=== PATIENT | female | born 1960 | race Caucasian/White ===

== ENCOUNTER 2021-12-04 09:38 | Day surgery (SDC) | payer MEDICAID ==
[~2021-12-04] VITALS: Ht 157.5 cm; Wt 96.3 kg
[2021-12-04] VITALS (13 sets, daily range): BP systolic 90–137; BP diastolic 39–69
[2021-12-04] MEDS ORDERED: nitroGLYCERIN 0.4mg SUBLingual tab SL PRN (10:00)
[2021-12-04] MEDS ORDERED: methylPREDNISolone sod succ 125mg/2ml vial IV ONE (10:00)
[2021-12-04] MEDS ORDERED: normal saline 1,000 ML IV SCH (10:00)
[2021-12-04] MEDS ORDERED: ATOR20TA66 PO (10:10)
[2021-12-04] MEDS ORDERED: METO25TA6 PO (10:10)
[2021-12-04] MEDS ORDERED: SPIR25TA5 PO (10:10)
[2021-12-04] MEDS ORDERED: LISI20TA28 PO (10:10)
[2021-12-04] MEDS ORDERED: MECO10005 PO (10:14)
[2021-12-04] MEDS ORDERED: CALC-331 PO (10:14)
[2021-12-04] MEDS ORDERED: CHOL200074 PO (10:14)
[2021-12-04] MEDS ORDERED: ASPI-1265 PO (10:14)
[2021-12-04] MEDS ORDERED: MULT9LIQ6 PO (10:14)
[2021-12-04] MEDS ORDERED: iohexol 350MG/ML 100ml bottle IV ONE (12:58)
[2021-12-04] MEDS ORDERED: midazolam 1 mg/ML 2ml injection ONE ×2 (12:58→13:35)
[2021-12-04] MEDS ORDERED: iohexol 350 MG/ML 50ML vial IV ONE (12:58)
[2021-12-04] MEDS ORDERED: LIDOcaine 1% (10mg/ml)w/preservative inj. 20ml MDV ONE (12:58)
[2021-12-04] MEDS ORDERED: fentaNYL/PF 50MCG/1 ML 2ML syringe ONE ×2 (12:58→13:53)
[2021-12-04] MEDS ORDERED: diphenhydrAMINE 50 mg/ml inj ONE (13:36)
[2021-12-04] MEDS ORDERED: HYDROcodone/acetaminophen 5mg/325mg tablet PO PRN (15:20)
[2021-12-04] MEDS: HYDROcodone/acetaminophen 10/325mg tab PO PRN ×2 (15:25→19:26)
[2021-12-04] MEDS ORDERED: ondansetron/PF 4mg/2ml inj IV PRN (15:25)
[2021-12-04] MEDS ORDERED: proCHLORperazine 10 MG/2 ml inj IV PRN (15:30)
[2021-12-04] MEDS ORDERED: OXAZEpam 15mg capsule PO PRN (15:30)
--- NOTE | 2021-12-04 19:45 | NUR ---
Ambulated patient and she complained of shakiness and feeling flushed. Returned patient to bed. Vital signs stable. Blood sugar 196. Puncture site to right groin stable. Monitoring patient at this time.
== END 2021-12-04 20:10 | disposition home or self-care (01) ==
LOC: SSTAY O 09:38
PROVIDERS: ATTEND Internal Medicine Cardiovascular Disease
DX: R94.39 Abnormal result of other cardiovascular function study (principal); I25.10 Atherosclerotic heart disease of native coronary artery without angina pectoris; J44.9 Chronic obstructive pulmonary disease, unspecified; E78.5 Hyperlipidemia, unspecified; F17.210 Nicotine dependence, cigarettes, uncomplicated; I10 Essential (primary) hypertension; Z88.8 Allergy status to other drugs, medicaments and biological substances; Z88.1 Allergy status to other antibiotic agents; Z79.899 Other long term (current) drug therapy
CPT/HCPCS: 82948; 93005; 93458; 99152; C1760; C1769; J1200; J1644; J2250; J2930; J3010; J3490; Q9967; 99153; A4620; A6258